=== PATIENT | male | born 1955 | race Caucasian/White ===

== ENCOUNTER → 2021-07-03 | Outpatient (CLI) | payer OTHER ==
[~2021-07-03] VITALS: Ht 175.3 cm; Wt 86.2 kg
[~2021-07-03] MED LIST: ASA81BEC PO; DOXAZOSIN MESYLA4 MG PO; PROSCAR 5MG TABL5 MG PO; TYLENOL325 MG PO; VITAMIN C500 M1 PO; VITAMIN D3 PO; [UNRECOGNIZED DRUG - OTHER] PO
--- NOTE | ~2021-07-03 | HPC ---
[facility] [place] [address] PAIN MANAGEMENT CONSULTATION Name: EDWINA MOODY [facility] [id number] Admission: 07/03/21 Attend Phys: Quinn Moody DO Discharge: Date of : 55 Report #: [id number] THIS REPORT FOR: cc: Mitch Silverman MD,Quinn Nieves MD, DO ~ cc: Mitch Silverman MD DATE OF SERVICE: 07/03/2021 REFERRING PHYSICIAN: Mitch Silverman MD CHIEF COMPLAINT: Low back pain, left lower extremity pain with paresthesias. HISTORY OF PRESENT ILLNESS: As you know, the patient is a very pleasant 66-year-old male who reports acute onset of low back pain, left lower extremity pain that began somewhere in 02/2020. He denies injury or trauma that may have led to symptom development. He has sought chiropractic manipulation, which has provided transient improvement in symptoms. He last saw the chiropractor who performed X-ray imaging of the patient's lumbar spine. He advised the patient that he had disk bulges and foraminal compromise and had to be seen by neurosurgeon. The patient was then sent on to see Dr. Mitch Silverman who evaluated the patient, he was sent for MRI imaging to confirm with more definitive imaging study, the pathology is existed. The patient was also sent on for physical therapy for which he has completed 4-5 sessions with some improvement in symptoms. He was started on tramadol, but states that this causes a vertigo sensation and he has discontinued medication. He noted no analgesic benefit. He states that rest and lying down tends to be helpful. Due to lack of improvement with conservative treatment and having the patient determined a nonsurgical candidate at this time, he was referred to our clinic to try interventional therapies. The patient reports the pain as constant. He describes the pain more as a burning and throbbing with some intermittent numbness and tingling. He places current pain score 4/10, daily average of 6-8/10, worst pain has been 9-10/10. The patient states the pain is exacerbated with standing for any length of time or ambulating long distances. Pain is improved with sitting down or lying down. He has been referred to our service to discuss interventional treatment options to address lumbar radiculopathy. PAST MEDICAL HISTORY: 1. Kidney disease. 2. History of renal cell carcinoma. 3. Osteoarthritis. PAST SURGICAL HISTORY: 1. Left nephrectomy. [address] [address] PAIN MANAGEMENT CONSULTATION Name: EDWINA MOODY [id number] Admission: 07/03/21 Attend Phys: Quinn Moody DO Discharge: Date of : 55 Report #: [id number] 2. Cholecystectomy. 3. Lumbar spine surgery. SOCIAL HISTORY: The patient denies tobacco use. Denies IV or illicit drug use. Denies any chronic alcohol use. He retired in 02/2020. He is not receiving disability income nor is he receiving benefit for disability. He is not in litigation in regards to pain. He is accompanied by his significant other, present in room today. ALLERGIES: No known drug allergies. CURRENT MEDICATIONS: Acetaminophen 325 mg 4 times a day, vitamin D3 2000 units per day, aspirin 81 mg per day, vitamin C 500 mg once a day, finasteride 5 mg once a day, doxazosin 4 mg once a day. REVIEW OF SYSTEMS: Positive for fatigue and weakness, wearing corrective eyewear, hearing loss with tinnitus, chronic sinus problems with rhinitis, nocturia, incontinence and dribbling to urine, kidney stones, numbness and tingling sensations involving the low back and left lower extremity. All other review of systems negative per 12-point review of systems other than those listed in history of present illness. Pain impact score 42/70, moderate to severe interference of daily activities secondary to pain. IMAGING: MRI of the lumbar spine obtained on 05/27/2021 shows T12-L1 unremarkable. L1-L2 shows moderate disk narrowing, annular bulge is mild in nature, osteophyte formation with slight flattening of the ventral thecal sac, measurement of the thecal sac is 1 cm. There is evidence of left foraminal L1 nerve root impingement. No significant right sided impingement. L2-L3 shows modic changes type 2. Minimal disk bulge and osteophyte formation. There is no focal disk herniation or central canal stenosis, minimal narrowing of the lateral recess bilaterally. MRI evidence of right foraminal L2 nerve root impingement, mild on the left. L3-L4 shows bilateral facet arthropathy and ligamentum flavum hypertrophy, osteophyte formation, mild narrowing of the lateral recess, mild narrowing of the central canal. Mild narrowing of the anterior portion of the bilateral neural foramen. L4-L5 shows minimal bilateral facet arthropathy and ligamentum flavum hypertrophy, minimal annular disc bulge. Mild central canal stenosis. Right foraminal disk osteophyte results in mild narrowing of the anterior portion of the right neural foramen. There is MRI evidence of right foraminal L4 nerve root impingement. Similarly, mild left without MRI evidence of L4 nerve root impingement. L5-S1 shows minimal annular disk bulge. No disk herniation, central canal stenosis or right foraminal narrowing. There is left foraminal disk bulge and osteophyte formation resulting in anterior compression of the left neural foramen. PQRS: The patient has known arthritic changes of the lumbar spine. No rheumatoid arthritis. He is placing pain intensity anywhere from 4-8/10. He is not a fall risk, has not had a fall in last 3 months. He is not on blood [facility] [address] [place] [address] PAIN MANAGEMENT CONSULTATION Name: EDWINA MOODY Room #: REG [facility].#: [id number] Admission: 07/03/21 Attend Phys: Quinn Moody DO Discharge: Date of : 55 Report #: [id number] thinners nor is he treated for hypertension. He is not on opioids, but does have a moderate opioid addiction based on assessment tool. Pain impact is 42/70, moderate to severe interference of daily activities secondary to pain. PHYSICAL EXAMINATION: VITAL SIGNS: Blood pressure 120/82, pulse is 76, respiratory rate 16 and unlabored. The patient is 97% on room air. Height 5 feet 9 inches tall, weight 190 pounds, BMI calculated 28.0. GENERAL: Well-developed, well-nourished, well-hydrated 66-year-old male, appearing stated age, placing current pain score anywhere from 4-6/10. HEENT: Normocephalic, atraumatic. Pupils are round. He is wearing a mask in compliance with COVID-19 regulations in hospital policies. LUNGS: Appear clear. No wheeze, rhonchi, or rales. CARDIOVASCULAR: Regular. No appreciable gallop, no rub. EXTREMITIES: Show no clubbing, no cyanosis and no edema. MUSCULOSKELETAL: Lower extremity strength equal and symmetrical 5/5, intact to light touch from L1 through S2 dermatomes. Seated straight leg raising negative. Supine straight leg raising is positive at 70-degree angle on the left, negative on the right. Ankle clonus negative. Babinski is negative. Lumbar provocation testing is met with slight increase in axial back pain with left rotation and lateral flexion. Negative on the right. Muscle bulk and tone is equal and symmetrical in lower extremities bilaterally. Deep tendon reflexes 2+/4 patella and Achilles. The patient is able to toe walk, heel walk and tandem gait without difficulty. Normal standard gait and station. ASSESSMENT: 1. Symptomatic lumbar radiculopathy. 2. Neural foraminal stenosis of lumbar spine. 3. Displacement of lumbar intervertebral disk with radiculopathy. 4. Degeneration of lumbar spine. 5. Mild central canal stenosis of lumbar spine. 6. Chronic intractable pain. PLAN: 1. Based on today's physical exam and the history patient was provided, the distribution of symptoms, the patient is experiencing pain upon, and the descriptors he uses in regards to symptoms, likely source of the patient's pain is a lumbar radiculopathy. It does appear based on the distribution of symptoms, he is experiencing an L5 dermatomal distribution on the left. We have discussed this with the patient today. Once we have completed the review of the patient's MRI and correlated the findings to his current physical exam, we then discussed the treatment options as follows. We discussed physical therapy, stretching exercises, core strengthening as a treatment approach. He has only undergone 4-5 sessions to date. He can continue with this activity. We discussed medication management with [address] [address] PAIN MANAGEMENT CONSULTATION Name: EDWINA MOODY Room #: REG [facility]#: [id number] Admission: 07/03/21 Attend Phys: Quinn Moody DO Discharge: Date of : 55 Report #: [id number] suggestions of treatment to include amitriptyline, nortriptyline, Cymbalta, Lyrica, gabapentin as possible treatment course. We discussed lumbar epidural injections for which the patient was referred to our clinic. We also discussed spinal cord stimulator therapy and ultimately surgical decompression. After reviewing risks and benefits of all proposed treatment options, the patient chose to move forward with a lumbar epidural injection under fluoroscopic guidance. 2. The patient was advised due to third republic[employer] payer restrictions, authorization would have to be obtained before the patient could undergo requested lumbar epidural injection. We will begin the authorization process immediately. This takes usually somewhere between 4-7 working days, we will begin that process today. Once we have that authorization, we will have the patient return to undergo the epidural injection requested. 3. No medication changes made at today's visit. The patient will continue current medical therapy as prior prescribed. We did discuss the possibility of starting the patient on neuropathic medication, but he is concerned about the side effects and wishes to delay that option. 4. I will see the patient back in followup visit to undergo the epidural injection proposed. I am hopeful that we will have the information quickly, so that the authorization will be completed and we will have the patient return as rapidly as possible. 5. We wish to thank Dr. Mitch Silverman for the referral of this patient to our clinic. We will keep you apprised of his response to treatment as we address lumbar radicular symptoms. Again, we wish to thank you for the opportunity to see the patient in consultation. By: [id number] Quinn Moody DO /nt
[2021-07-03 09:05] VITALS: BP 120/82
--- NOTE | 2021-07-03 09:54 | NUR ---
Pain Clinic Assessment: 1. History of Osteoarthritis: Not Applicable History of Rheumatoid Arthritis: Not Applicable 2. Height: 5 ft. 9 in. 175.3 cm. Weight: 190.0 lb. oz. 86.184 kg. Patient's BMI: 28.0 3. Vital Signs: BP: 120/82 Pulse: 76 Resp: 16 Temp: 02 Sat: 97 ECG Mon: 4. Pain Intensity: 6-8 TODAY 4 5. Fall Risk: Dizziness: Y Needs help standing or walking: N Fallen in the last 3 months: N Fall risk comments: 6. Patient on Blood Thinner: None 7. History of Hypertension: N 8. Opioid Therapy greater than 6 weeks: N Opiate Contract Signed: 9. Risk Assessment Tool Provided: MOD 10. Functional Assessment Tool: 11. Recreational Drug Use: Past greater than 3 mos Drug Type: MARIJUANA Tobacco Use: Never Smoker Tobacco Type: Amount or Packs/day: How Many Years: Alcohol Use: Yes Frequency: Special Occasions Quant: 1-2
== END ==
LOC: PAIN 07:02
PROVIDERS: ATTEND Anesthesiology Pain Medicine
DX: M51.16 Intervertebral disc disorders with radiculopathy, lumbar region (principal); M48.061 Spinal stenosis, lumbar region without neurogenic claudication; Z79.899 Other long term (current) drug therapy